=== PATIENT | female | born 1935 | race Hispanic/Latino ===

== ENCOUNTER 2017-02-08 06:40 | Day surgery (SDC) | payer MEDICARE, BC ==
[2017-01-26 08:47] VITALS: BMI 28.6
[2017-02-08] MEDS ORDERED: Propofol 10 mg/ml Inj (20 ML) ONE (08:05)
[2017-02-08] MEDS ORDERED: Lidocaine 2% Inj (20ml) ONE (08:05)
[2017-02-08] MEDS ORDERED: Etomidate 20 mg/10ml Inj IV ONE (08:07)
[2017-02-08] MEDS ORDERED: Sodium Chloride 0.9% 1,000 ML IV SCH (08:30)
[2017-02-08 09:09] VITALS: BP 151/81; PULSE 62; RESP 19; TEMP 98.1; O2SAT 100
== END 2017-02-08 09:43 | disposition home or self-care (01) ==
LOC: ENDO 06:40
PROVIDERS: ATTEND Specialist
DX: K20.9 Esophagitis, unspecified (principal); D50.0 Iron deficiency anemia secondary to blood loss (chronic); K44.9 Diaphragmatic hernia without obstruction or gangrene; I25.10 Atherosclerotic heart disease of native coronary artery without angina pectoris; I10 Essential (primary) hypertension; I35.0 Nonrheumatic aortic (valve) stenosis; Z95.1 Presence of aortocoronary bypass graft
CPT/HCPCS: 43235; J2704; J3010; J7040 ×2